=== PATIENT | male | born 1945 | race Caucasian/White ===

== ENCOUNTER 2018-08-19 16:13 | Inpatient (IN) | payer OTHER ==
[~2018-08-19] VITALS: Ht 175.3 cm; Wt 83.6 kg
[~2018-08-19 16:13] MED LIST: AMLODIPINE BESY10 MG PO; CHLORTHALIDONE25 MG PO; LISINOPRIL10 MG PO; NAPROXEN500 MG PO; OMEPRAZOLE20 MG PO; SYNTHROID25 MCG PO
[2018-08-19] MEDS ORDERED: LIPITOR10 MG PO (17:58)
[2018-08-19] MEDS ORDERED: FLOMAX0.4 MG PO (17:58)
[2018-08-19] MEDS ORDERED: FERROUS SULFAT324 MG PO (17:59)
[2018-08-19] MEDS ORDERED: ZYRTEC10 M3 PO (17:59)
--- NOTE | 2018-08-19 19:06 | NUR ---
pt ARRIVED TO FLOOR. ALERT AND ORIENTED, ABLE TO ANSWER ALL QUESTIONS. DENIES PAIN AT THIS TIME. DENIES NAUSEA. SOB IN THE LAST 3 DAYS. HAS HAD NECK PAIN THAT IS POSITIONAL OVER THE LAST WEEK. pt UPDATED ON PLAN OF CARE. NO QUESTIONS AT THIS TIME. GUARDS AT BEDSIDE.
--- NOTE | 2018-08-19 20:00 | NUR ---
INITIAL PATIENT ASSESSMENT COMPLETE. PATIENT RESTING IN BED. DENIES ANY COMPLAINTS. VS STABLE. LUNGS ARE CLEAR. ABD MODERATELY DISTENDED, PATIENT STATES NORMAL. BOWEL SOUNDS ACTIVE, ABD NONTENDER. CMS INTACT, PEDAL AND RADIAL PULSES STRONG. PATIENT RECEIVING IV FLUIDS PER ORDER. MAG STARTED PER ORDERS. BOWEL PREP STARTED. UPDATED PATIENT ON PLAN OF CARE. PATIENT IN FOUR POINT RESTRAINTS WITH TWO OFFICERS AT BEDSIDE.
--- NOTE | 2018-08-19 20:30 | NUR ---
UNIT 1 OF 3 VERIFIED AT BEDSIDE WITH SECOND RN AND STARTED. DISCUSSED SIGNS OF ADVERSE REACTIONS WITH PATIENT. VS STABLE. PATIENT REQUEST TO GET UP TO BEDSIDE. PATIENT HAD VERY SMALL LOOSE BLACK/RED STOOL. ASSISTED PATIENT BACK TO BED. NO SIGNS OF REACTION AFTER 15MINS.
--- NOTE | 2018-08-19 21:37 | NUR ---
PATIENT FINISHED 1 OF 2 BOTTLES OF BOWEL PREP AND BECAME NAUSEOUS. COFFEE GROUND EMESIS NOTED. PRN ZOFRAN PROVIDED. PATIENT REQUIRES ADDITIONAL IV SITE, WHICH WAS STARTED BY ANTHROPOLOGY PROFESSOR.
--- NOTE | 2018-08-19 21:45 | NUR ---
PLATELETS VERIFIED WITH SECOND RN AT BEDSIDE. VS STABLE. PLATELETS PROVIDED ON STRAIGHT TUBING. PATIENT CONTINUES TO DRINK BOWEL PREP. DENIES NAUSEA AT THIS TIME.
--- NOTE | 2018-08-19 22:39 | NUR ---
SECOND UNIT OF PRBC STARTED, 15MIN ASSESSMENT SHOWS NO SIGN OF REACTION. VS STABLE. PATIENT DENIES NEEDS. APPEARS TO BE RESTING COMFORTABLY IN BED.
--- NOTE | 2018-08-19 23:45 | NUR ---
UNIT 3 OF 3 PRBC INFUSING. VERIFIED WITH SECOND RN AT BEDSIDE. AFTER 15 MIN NO SIGNS OF REACTION. VS STABLE. PATIENT UP TO THE BSC. VERY SMALL SEMI FORMED DARK STOOL NOTED. NO URINE OUTPUT AT THIS TIME. PATIENT DENIES FEELING DIZZY OR SOB WITH THIS ACTIVITY.
--- NOTE | 2018-08-20 00:15 | NUR ---
3 OF 3 UNITS OF PRBC FINISHED. VS STABLE. NO SIGN OF REACTION. PATIENT UP TO BSC AND HAD A LARGE LIQUID BLACK STOOL WITH URINE MIXED IN. PATIENT BACK TO BED. LAB IN ROOM FOR SCHEDULED LAB DRAW.
--- NOTE | 2018-08-20 02:15 | NUR ---
PATIENT UP TO BSC. LARGE LIQUID BLACK STOOL WITH MIXED URINE NOTED. NO DIZZINESS WITH TRANSFER. VS STABLE. PATINET BACK IN BED RESTING.
--- NOTE | 2018-08-20 02:35 | NUR ---
MD NOTIFIED OF PATIENT LABS. ORDERS RECEIVED FROM RATE CHANGE OF IV FLUIDS AND ORTHOSTATIC VS TO BE DONE IN THE MORNING WHEN PATIENT IS AWAKE. VERIFIED ORDERS VIS REPEAT BACK METHOD.
--- NOTE | 2018-08-20 04:30 | NUR ---
PATIENT APPEARS TO BE SLEEPING SOUNDLY. VS STABLE. LUNGS ARE CLEAR. ABD SOFT. BOWEL SOUNDS ACTIVE. IV SITES WNL X3. IV FLUIDS PER ORDER. ALLOWED PATIENT TO REST.
--- NOTE | 2018-08-20 05:30 | NUR ---
ORTHOSTATIC VS COMPLETE LAYING BP 138/65 HR 76 STANDING 1 MIN BP 147/68 HR 82 STANDING 3 MIN BP 135/71 HR 71 PATIENT DENIES FEELING DIZZY/LIGHTHEADED
--- NOTE | 2018-08-20 06:51 | NUR ---
DR. STILL IN TO SEE PATIENT. CONSENT SIGNED AND IN CHART.
--- NOTE | 2018-08-20 08:04 | NUR ---
REPORT RECEIVED FROM [facility]. pt RESTING IN BED. AWAKE AND ALERT. ASSESSMENT DONE. DENIES PAIN. VERBALIZED UNDERSTANDING OF TODAY'S PLAN OF CARE. NO REQUESTS AT THIS TIME. GUARDS AT BEDSIDE.
--- NOTE | 2018-08-20 08:30 | NUR ---
up to commode WITH ASSIST TO EXPELL 450 ML OF BLACK LIQ STOOL WITH URINE TOTAL VOLUME 450. BACK TO BED W/O INCIDENT. DENIES DIZZINESS. STATES HE FEES BETTER TODAY.
--- NOTE | 2018-08-20 08:47 | NUR ---
MEDICATION GIVEN (SEE MAR). ENEMA GIVEN. pt WILL CALL WHEN READY FOR BSC. GUARDS AT BEDSIDE
--- NOTE | 2018-08-20 09:07 | NUR ---
CALL LIGHT ON. pt OFF COMMODE, BOWEL OUTPUT BLACK AND SEEDY, NO CHANGE FROM PRIOR BM. pt BACK TO BED. GUARDS AT BEDSIDE. CALL LIGHT WITHIN REACH.
--- NOTE | 2018-08-20 10:13 | NUR ---
pt RESTING IN BED. NO REQUESTS AT THIS TIME. GUARDS AT BEDSIDE.
--- NOTE | 2018-08-20 10:33 | NUR ---
TO COMMODE TO EXPELL BLACK LIQ STOOL WITH URINE. TOTAL VOLUME-650 ML. DENEIS PROBLEMS. OFFICERS REMAINS IN ROOM.
--- NOTE | 2018-08-20 11:55 | NUR ---
OR NURSE HERE. AMBULATED TO STRETCHER. TRANFERRED FROM UNIT.
--- NOTE | 2018-08-20 14:57 | NUR ---
08/20/18 1457 Loraine Andre 1434 PT ARRIVED IN PACU REACTIVE TO VERBAL STIMULI WITH [facility] GUARDS X2 AT BEDSIDE. ABD SOFT AND PASSING FLATUS. 1440 REPOSITIONED TO BACK AND BP CUFF ADJUSTED. PT WITH NO C/O'S.
--- NOTE | 2018-08-20 15:20 | NUR ---
pt ARRIVED FROM PACU, REPORT FROM KATHIE MASON. pt ABLE TO MOVE FROM STRETCHER TO BED. pt DENIED PAIN AND NAUSEA AT THIS TIME. UP TO BSC, SBA STABLE ON FEET. ASSESSMENT DONE. CLEAR LIQUIDS PROVIDED. CALL LIGHT WITHIN REACH. NO REQUESTS AT THIS TIME.
--- NOTE | 2018-08-20 16:33 | NUR ---
Medications reconciled with [facility] med list
--- NOTE | 2018-08-20 16:33 | NUR ---
pt UP TO COMMODE AND BACK TO BED. YELLOW URINE. pt REPORTED SOME FROM BOWEL, A FEW SMALL CLOTS. pt REPORTED "I FEEL BETTER", DENIES DIZZINESS AND LIGHTHEADEDNESS, NO NAUSEA. CALL LIGHT WITHIN REACH. NO REQUESTS AT THIS TIME.
--- NOTE | 2018-08-20 17:15 | NUR ---
pt RESTING WITH EYES CLOSED, DINNER TRAY IN ROOM.
--- NOTE | 2018-08-20 18:07 | NUR ---
LAB IN ROOM. pt UP TO BSC. CALL LIGHT WITHIN REACH.
--- NOTE | 2018-08-20 18:29 | NUR ---
CALL LIGHT ON. SCANT AMOUNT OF BRIGHT RED BLOOD NOTED IN BSC. pt DENIED DIZZINESS. AMBULATED BACK TO BED. TRAY CLEARED. NO REQUESTS AT THIS TIME. GUARDS AT BEDSIDE.
--- NOTE | 2018-08-20 19:31 | NUR ---
pt UP TO BSC AND BACK TO BED. LARGE VOID, NO BM. GUARDS AT BEDSIDE. NO REQUESTS AT THIS TIME.
--- NOTE | 2018-08-20 19:50 | NUR ---
REPORT RECEIVED, PT RESTING IN BED, AOX4, APPROPRIATE, EOC[facility] GUARDS AT BEDSIDE, PT DENIES ANY NEEDS AT THIS TIME, LS CLEAR, BT ACTIVE, PT DENIES ANY ABDOMINAL DISCOMFORT, DENIES ANY PAIN. PT ON RA. VSS, CALL LIGHT WITHIN REACH. FALL PRECAUTIONS IN PLACE. [facility] GUARDS REMAIN AT BEDSIDE. HR 60'S, BP @ 20:00: 108/50 (65), RR 16,
--- NOTE | 2018-08-20 21:04 | NUR ---
EVENING MEDS ADMINISTERED, PT AOX4, APPROPRIATE, NO NEEDS AT THIS TIME, VSS, [facility] GUARDS REMAIN AT BEDSIDE. IV'S FLUSHED, SL, FLUSH WELL, CALL LIGHT WITHIN REACH. FALL PRECAUTIONS IN PLACE.
--- NOTE | 2018-08-20 22:14 | NUR ---
PT RESTING IN BED, NO REQUESTS AT THIS TIME, CALL LIGHT WITHIN REACH. EOCI GUARDS X2 AT BEDSIDE, FALL PRECAUTIONS IN PLACE. VSS.
--- NOTE | 2018-08-20 22:41 | EKG ---
[facility] [address] [facility] [place] [address] Signed Sinus rhythm with 1st degree AV block Septal infarct , age undetermined Abnormal ECG No previous ECGs available Confirmed by GREG SAMPSON MD ([id number]) on 08/20/2018 10:41:43 PM Electronically Signed By: GREG SAMPSON MD 08/20/18 2241 PATIENT NAME: BALJINDER ASKEW Electrocardiogram DATE OF : 49 PHYSICIAN: GREG SAMPSON MD REPORT #: [id number] REPORT IS CONFIDENTIAL AND NOT TO BE RELEASED WITHOUT AUTHORIZATION
--- NOTE | 2018-08-20 23:43 | NUR ---
PT RESTING IN BED, EYES CLOSED, BREATHS EVEN, UNLABORED, NO REQUESTS AT THIS TIME, CALL LIGHT WITHIN REACH, FALL PRECAUTIONS IN PLACE. [facility]OCI GUARDS AT BEDSIDE.
--- NOTE | 2018-08-21 | NUR ---
PT UP TO BSC, PT VOIDED 550 MLS OF URINE, PT DID NOT HAVE A BM ALTHOUGH STATED THAT THERE WAS SOME RED BLOOD NOTED WHEN HE WIPED HIS BOTTOM. PT'S VSS, BP 116/58, HR 68, ON RA, O2 SAT 93%, NO REQUESTS AT THIS TIME, CALL LIGHT WITHIN REACH. FALL PRECAUTIONS IN PLACE. EOCI GUARDS AT BEDSIDE.
--- NOTE | 2018-08-21 03:32 | NUR ---
PT'S OXYGEN NOTED TO DESATURATE WHILE PATIENT WAS SLEEPING TO 86%, PT PLACED ON 1LNC, PT DENIES SOB/CP, HR 67, RR 17, O2 SAT NOW 96%, CALL LIGHT WITHIN REACH. FALL PRECAUTIONS IN PLACE. EOCI GUARDS AT BEDSIDE.
--- NOTE | 2018-08-21 05:09 | NUR ---
PT UP TO VOID IN URINAL, PT VOIDED 450 MLS OF CLEAR YELLOW URINE, NO FURTHER NEEDS AT THIS TIME, CALL LIGHT WITHIN REACH. VSS, FALL PECAUTIONS IN PLACE. EOCI GUARDS AT BEDSIDE.
--- NOTE | 2018-08-21 06:35 | CONS ---
[facility] [address] [place], [place] [address] Signed DATE OF CONSULTATION: 08/19/2018 CHIEF COMPLAINT: Anemia. HISTORY OF PRESENT ILLNESS: Baljinder is a 73-year-old gentleman, who had been in the hospital in 2015 for an episode of anemia. He underwent upper and lower endoscopy with Dr. Sousa. He is known to have fairly sizable hiatal hernia as well as fairly significant diverticulosis and maybe some small AV malformations in the rectum. In the meantime, he has been maintained on oral iron therapy. He cannot recall ever seeing a humidifier operator. He said he has had some bright red rectal bleeding in the last 3 days and was feeling dizzy. Of course, when they checked his blood count, it was low at 5.9. He is therefore brought over to the emergency room for admission. He has received 3 units of packed red blood cells overnight and his hemoglobin is up to 9.3. He was given IV fluids and his sodium is up from 122 to 125. His BUN was only slightly up at 25. At one point, he did vomit some of the prep and it looks like there was some coffee-grounds emesis present. We know he has been on chronic Naprosyn because of his arthritis in his lumbar area and his joints. However, he does take omeprazole. I have been asked to see him as the general surgeon on-call. Overall, he has done well. 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 PAST SURGICAL HISTORY: Left knee arthroscopy and upper and lower endoscopy [place] [address] Sousa. SOCIAL HISTORY: He has not smoked since being in [place]. He does not drink. He is at the [facility]. Dr. Linus Yo is his primary care provider. He was then [employer] out of [place], [place]. He is and has two daughters. FAMILY HISTORY: He is adopted and has no knowledge of his biologic family. REVIEW OF SYSTEMS: He had ten systems reviewed. He said there is no metal in his body. ALLERGIES: None. Electronically Signed By: DONALD STILL MD 08/21/18 0635 PATIENT NAME: BALJINDER ASKEW CONSULTATION DATE OF : 49 REPORT #: [id number] PHYSICIAN: DONALD STILL MD PCP: LINUS YO MD REPORT IS CONFIDENTIAL AND NOT TO BE RELEASED WITHOUT AUTHORIZATION [facility] [address] [place] [id number] Signed MEDICATIONS: Amlodipine, levothyroxine, lisinopril, atorvastatin, chlorthalidone, tamsulosin, naproxen, omeprazole, sertraline, and iron sulfate. PHYSICAL EXAMINATION: VITAL SIGNS: Blood pressure is 132/52, heart rate 76, respiratory rate 14, temperature 97.6. He is 95% on room air. He is 5 feet and 9 inches, 81 kg. GENERAL: Baljinder is a 73-year-old gentleman, lying supine in his hospital bed. He does not appear systemically ill or toxic. He does not appear pale. Two of the officers are with him along with our nurse. LUNGS: Clear to auscultation bilaterally. HEART: Regular rate and rhythm. ABDOMEN: Soft and nontender. RECTAL: Not repeated currently. LABORATORY DATA: His initial white blood cell count was around 8.8, it is up to about 12.9. His hemoglobin was 5.9. He received three units of packed red blood cells and it is up to 9.3. His platelet count is low at 80,000. His sodium was low at 122, now it is up to 125 after some saline. His BUN was 25, but the creatinine was normal at 0.88, glucose 118, his alkaline phosphatase slightly up at 163, possibly from his ankylosing spondylitis. His INR is 1.4. His PTT was 36. His albumin is 4. RADIOGRAPHIC STUDIES: None. ASSESSMENT AND PLAN: Baljinder is a 73-year-old gentleman, who presents certainly with anemia and some rectal bleeding. He sounds like he may have had a little coffee ground emesis yesterday with the bowel prep. At this point, he certainly has reasons to have both upper and lower GI bleeds. He is certainly better after 3 units of packed red blood cells and his sodium has certainly improved at this point. We are going to need to check with our anesthesia providers about the sodium if we can sedate him today or maybe tomorrow or the next day. I did review with him upper and lower endoscopy. He remembers that quite well. He understands there is risk including, but not limited to gas bloating, crampy abdominal pain, bleeding, perforation, requiring surgery, and missed diagnosis. He has expressed understanding and would like to proceed. Donald Still MD Electronically Signed By: DONALD STILL MD 08/21/18 0635 PATIENT NAME: BALJINDER ASKEW CONSULTATION DATE OF : 49 REPORT #: [id number] PHYSICIAN: DONALD STILL MD PCP: LINUS YO MD REPORT IS CONFIDENTIAL AND NOT TO BE RELEASED WITHOUT AUTHORIZATION [facility] [address] [place] [address] Signed ALB/MODL /[id number] cc: MD Donald Wu MD Copies: LINUS YO MD, ANDREW L MD ~ Electronically Signed By: DONALD STILL MD 08/21/18 0635 PATIENT NAME: BALJINDER ASKEW CONSULTATION DATE OF : 49 REPORT #: [id number] PHYSICIAN: DONALD STILL MD PCP: LINUS YO MD REPORT IS CONFIDENTIAL AND NOT TO BE RELEASED WITHOUT AUTHORIZATION
--- NOTE | 2018-08-21 06:35 | OR ---
[facility] [address] [place], [place] [address] Signed DATE OF OPERATION: 08/20/2018 SURGEON: Donald Still MD PREOPERATIVE DIAGNOSES: 1. Coffee-ground emesis with bowel prep. 2. Melena, on oral iron therapy. 3. Mild bright red rectal bleeding. 4. Severe acute on chronic anemia. 5. Naprosyn p.r.n. for arthritic pain. 6. History of moderate-sized hiatal hernia. 7. History of moderate sigmoid diverticulosis. POSTOPERATIVE DIAGNOSES: 1. Moderate Melvi-Venegas tear with blood clot. 2. Moderate-sized hiatal hernia. 3. Moderate sigmoid diverticulosis. 4. Mild bright red blood per anal canal/anal fissure. PROCEDURES PERFORMED: 1. Esophagogastroduodenoscopy with CLOtest and biopsies of the antrum. 2. Colonoscopy without biopsy. ESTIMATED BLOOD LOSS: None. INDICATIONS: Baljinder is a 73-year-old gentleman [facility]. He said he has had some bright red blood per rectum in the last 3 days. He was feeling dizzy and he was found to have some hypotension and acute on chronic anemia. This is despite his routine oral iron therapy. He is also known to have a moderate-sized hiatal hernia associated with acid reflux. He had this evaluated back in 2015 here in the hospital. He had upper and lower endoscopy at that time. He also has moderate sigmoid diverticulosis. He had been sent to emergency room with the above findings. His hemoglobin was 5.9. He got 3 units of packed red blood cells and now his hemoglobin is up to 9.3. His BUN is slightly elevated at 25. Albumin was good at 4 and his INR was 1.4 with a PTT of 36. He has been on omeprazole as well. He gives no specific history of vomiting while at [facility]. He was admitted to our Internal Medicine Service. I have been asked to see him as a general surgeon on-call. I reviewed all these findings with Baljinder in detail. I explained it would be best if he Electronically Signed By: DONALD STILL MD 08/21/18 0635 PATIENT NAME: BALJINDER ASKEW OPERATIVE REPORT DATE OF : 49 REPORT #: [id number] PHYSICIAN: DONALD STILL MD PCP: LINUS YO MD REPORT IS CONFIDENTIAL AND NOT TO BE RELEASED WITHOUT AUTHORIZATION [place] [facility] [address] [place], [place] [address] Signed have upper and lower endoscopy. He had been through his bowel prep yesterday and overall did well with that except he did vomit once and he did have some coffee-ground emesis associated with that. He understands upper endoscopy quite well. There is risk including, but not limited to gas bloating, crampy abdominal pain, bleeding, perforation requiring surgery, and missed diagnosis. He also understands the need for IV conscious sedation. Given his acute situation and his vomiting of coffee-ground emesis, we asked that an anesthesia provider help us with increased monitoring of the airway and sedation with propofol. He had expressed understanding and wished to proceed. DESCRIPTION OF PROCEDURE: Baljinder was taken into endoscopy suite and placed in the supine semi-recumbent position. A bite block was utilized for the case. We did not apply Hurricaine spray or lidocaine spray to his posterior oropharynx. He was sedated with propofol per our nurse cream tester. The adult gastroscope was introduced and advanced all the way out into the third portion of the duodenum under direct visualization of camera. He had some bilious fluid in the duodenum. The pyloric channel was unremarkable. The distal half of the stomach was unremarkable other than some dark liquid blood spread around the stomach. We went and took a biopsy of the antrum for CLOtest as well as pathologic review. No ulcerations in the stomach. Upon retroflexion of scope, we could easily see his moderate-sized hiatal hernia. He had a moderate-sized blood clot on the edge of the hiatal hernia consistent with his Melvi-Venegas tear. No active bleeding from underneath the clot. The clot was irrigated and adherent to the area. Consequently, we left that alone. We did not inject any epinephrine nor did we apply any clips. The scope was withdrawn up through the area of GE junction, which was compliant without stricture. We did not specifically assess the Z-line. His middle and upper esophagus were unremarkable. After this, the gas was suctioned out, the gastroscope removed. Baljinder tolerated his upper endoscopy quite well. Baljinder was then rotated into the left lateral decubitus position. He was maintained on IV sedation with his propofol. A digital rectal exam was performed, this was unremarkable other than some black liquid blood on the index finger. I then specifically evaluated his prostate gland. The adult colonoscope was then introduced and advanced all around up into the mid right colon under direct visualization of camera without difficulty. The proximal half of his colon was black, tarry liquid stool, so we did not advance the scope any further. The scope was then slowly withdrawn. He had black, tarry liquid stool throughout the entire colon. There was no bright red blood in the colon. We did see moderate diverticulosis in the sigmoid colon. The rectum was unremarkable. Upon retroflexion of the scope, he has some small internal hemorrhoid columns. We then slowly withdrawn the scope down to the anal canal and he had just one radial area, where there was some bright red blood and it looks like he might have an acute fissure that has bled. Certainly nothing copious. After this, the gas was suctioned out and the colonoscope removed. Baljinder tolerated the lower endoscopy quite Electronically Signed By: DONALD STILL MD 08/21/18 0635 PATIENT NAME: BALJINDER ASKEW OPERATIVE REPORT DATE OF : 49 REPORT #: [id number] PHYSICIAN: DONALD STILL MD PCP: LINUS YO MD REPORT IS CONFIDENTIAL AND NOT TO BE RELEASED WITHOUT AUTHORIZATION [place] [facility] [address] [place] [id number] Signed well. RECOMMENDATIONS: Baljinder is going to be returned to his ICU bed under the Internal Medicine Service. He will obviously need to stay on his proton pump inhibitor along with a liquid diet. We will continue to monitor serial exams and serial hemoglobin levels. 85% of all Melvi- Venegas tears will heal without intervention. In addition, the acute anal fissure should heal as well. Donald Still MD ALB/MODL /[id number] cc: MD Linus Cazares MD [facility] Copies: DONALD STILL MD, LELAND MD ~ Electronically Signed By: DONALD STILL MD 08/21/18 0635 PATIENT NAME: BALJINDER ASKEW OPERATIVE REPORT DATE OF : 49 REPORT #: [id number] PHYSICIAN: DONALD STILL MD PCP: LINUS YO MD REPORT IS CONFIDENTIAL AND NOT TO BE RELEASED WITHOUT AUTHORIZATION
--- NOTE | 2018-08-21 08:43 | NUR ---
PT RESTING IN BED, DENIES PAIN, NAUSEA, AND SOB. PT ALERT AND ORIENTED X4, COOPERATIVE. PT IN 4 POINT RESTRAINTS, SKIN INTACT. TWO GAURDS AT THE BEDSIDE. ALL IV SITES INTACT, FLUSH EASILY.
--- NOTE | 2018-08-21 12:40 | NUR ---
full report given to Rebecca VÁZQUEZ. all questions answered.
--- NOTE | 2018-08-21 12:55 | NUR ---
pt transfered to room 123, all pt belongings went with pt. [facility] went with pt.
--- NOTE | 2018-08-21 13:00 | NUR ---
73YR OLD MAN ADMITTED FROM CCU TO ROOM 123. TRANSFERRED IN RECLINER BY NURSE AND ACCOMPANIED BY 2 GUARDS. PT IS ALERT, ORIENTED. WANTS TO REMAIN SITTING UP IN RECLINER. BLOOD DRAWN FOLLOWING PLATELETS GIVEN IN CCU. ORIENTED TO ROOM, DENIES ANY NEEDS. LUNCH ORDERED.
--- NOTE | 2018-08-21 13:29 | NUR ---
PLATELETS NOW 86 FROM 61 THIS AM. PT WATCHING TV IN RECLINER, EATING LUNCH.
--- NOTE | 2018-08-21 13:57 | NUR ---
ATE 100% OF FULL LIQUID LUNCH TRAY. RESTING NOW ON BED.DENIES FURTHER NEEDS.
--- NOTE | 2018-08-21 15:10 | NUR ---
DENIES ANY NAUSEA OR PAIN. WATCHING TV. GUARDS IN ROOM.
--- NOTE | 2018-08-21 17:22 | NUR ---
PT TRANSFERRED FROM CCU TODAY FOLLOWING PLATELET INFUSION, LABS IMPROVED AND WILL BE REPEATED IN AM, DR STILL CALLED FOR UPDATE AT THIS TIME, WILL CONT. ON CL LIQUID DIET FOR TONIGHT. NO C/O NAUSEA, PAIN AND NO BLEEDING. 2 GUARDS IN ROOM.
--- NOTE | 2018-08-21 18:55 | NUR ---
SHIFT REPORT RECEIVED FROM DAYSMIJAYLEN DAVIS AT BEDSIDE. PT IN BATHROOM TAKING SHOWER. GUARDS IN ROOM. NO NEEDS AT THIS TIME.
--- NOTE | 2018-08-21 19:45 | NUR ---
CHARGE NURSE ROUNDING NOTE:, IN BED, WEARING 4 POINT SHACKLES, 2 [facility] GUARDS IN ROOM. PT DENIES C/O PAIN. WATCHING TV. CALL LIGHT AT BEDSIDE. PT ON CLEAR LIQUIDS, WOULD LIKE TO HAVE DIET UPDATED TO REGULAR, EXPLAINED TO HIM ABOUT HIS DX, PRECAUTION. STATED "I AM JUST HUNGRY".
--- NOTE | 2018-08-21 21:15 | NUR ---
ASSESSMENT COMPELTE, SCHEDULED MEDICATIONS GIVEN (SEE EMAR). PT A/OX4, DENIES PAIN. VSS AND RECORDED. PT EOCI, GUARDS X2 IN ROOM. RESTRAINTS IN PLACE. PT RECENTLY COMPLETED SHOWER, NOW RESTING IN BED. NO DISTRESS NOTED. PT DENIES NAUSEA, BOWEL TONES ACTIVE. PT SALINE LOCKED, IV SITE X3 WNL. FRESH WATER AT BEDSIDE, NO FURTHER NEEDS. CALL LIGHT IN REACH.
--- NOTE | 2018-08-21 21:37 | NUR ---
VITALS AND I&OS DONE AND CHARTED. FRESH ICE WATER GIVEN. BEDSIDE TABLE AND CALL LIGHT IN REACH. PT NEEDS NOTHING MORE AT THIS TIME.
--- NOTE | 2018-08-21 23:00 | NUR ---
PT RESTING IN BED, EYES CLOSED, RR WNL. PT DENIES NEEDS, NO DISTRESS NOTED. CALL LIGHT IN REACH, RESTRAINTS IN PLACE. GUARDS X2 IN ROOM.
--- NOTE | 2018-08-22 01:50 | NUR ---
PT AWAKE AND IS RESTING IN BED. EYES OPEN, RR WNL. PT STATES, "I'M HAVING A HARD TIME GETTING TO SLEEP. I CAN'T GET COMFORTABLE". PT OFFERED WARM BLANKET, ICE PACK, BOTH OF WHICH PT KINDLY DECLINED. EOCI GUARDS IN ROOM, RESTRAINTS IN PLACE. CALL LIGHT IN REACH. NO FURTHER NEEDS.
--- NOTE | 2018-08-22 04:05 | NUR ---
PT RESTING IN BED, EYES CLOSED, RR WNL. PT APPEARS COMFORTABLE. CALL LIGHT IN REACH. EOCI GUARDS X2 IN ROOM. RESTRAINTS IN PLACE.
--- NOTE | 2018-08-22 04:42 | NUR ---
PT'S SCHEDULED LEVOTHROID RETIMED FOR 0700 DAILY. 0900 DISCONTINUED AND RETIMED FOR 0700 BY TELEPHARMACY.
--- NOTE | 2018-08-22 05:02 | NUR ---
PT HAD UNEVENTFUL NIGHT, DID HAVE DIFFICULTY INITIALLY FALLING TO SLEEP. PT SHOWERED, SBA. EOCI GUARDS IN ROOM, RESTRAINTS IN PLACE. PT A/OX4, VERBALIZED DISCOMFORT AT ONE POINT WITH POSITIONING IN BED. VSS, PT ON RA. CLEAR LIQUID DIET, TOLERATING WELL. NO NAUSEA THIS SHIFT.
--- NOTE | 2018-08-22 05:54 | NUR ---
VSS AND RECORDED. I&O'S ALSO RECORDED. ASSESSMENT COMPLETE, NO NEW CONCERNS. PT A/OX4, DENIES PAIN. PT RESTING IN BED, EYES OPEN, RR WNL. PT APPEARS COMFORTABLE AND INTERACTING WITH NURSING STAFF AND EOCI GUARDS. RESTRAINTS IN PLACE, NO FURTHER NEEDS. FRESH WATER AT BEDSIDE.
--- NOTE | 2018-08-22 07:32 | NUR ---
REPORT RECIEVED FROM MANAGER COMMUNITY RN. PT IN BED 2 GAURDS AT BEDSIDE. DENIES DNEEDS. CALL LIGHT IN REACH.
--- NOTE | 2018-08-22 08:15 | NUR ---
PATIENT SITTING UP IN BED WATCHING TV. TWO GUARDS IN ROOM. CALL LIGHT WITHIN REACH. NO OTHER NEEDS AT THIS TIME
--- NOTE | 2018-08-22 09:58 | NUR ---
PATIENT RESTING IN BED. TWO GUARDS IN ROOM. VITAL SIGNS AND I&O DONE. PATIEBNT DID NOT VOID DURING THIS PERIOD. RN NOTIFIED. CALL LIGHT WITHIN REACH. NO OTHER NEEDS AT THIS TIME
--- NOTE | 2018-08-22 10:20 | NUR ---
BLOOD DOUBLE CHECKED WITH RYAN VÁZQUEZ. BLOOD STARTED.
--- NOTE | 2018-08-22 12:14 | NUR ---
PT OUT AMBULATING [facility] JENNIFER AT SIDE. TOLERATING WELL,.
--- NOTE | 2018-08-22 13:39 | NUR ---
PATIENT SITTING UP IN BED WATCHING TV. TWO GUARDS IN ROOM. VITAL SIGNS AND I&O DONE. CALL LIGHT WITHIN REACH. NO OTHER NEEDS AT THIS TIME
--- NOTE | 2018-08-22 15:00 | NUR ---
PT OUT WITH GAURDS TO AMBULATE IN HALLS. TOLERATING WELL. DID MULTIPLE LAPS.
--- NOTE | 2018-08-22 19:15 | NUR ---
BEDSIDE REPORT RECEIVED FROM OFFGOING RN. PT RESTING IN BED WITH SHACKLES PRESENT X4. CORRECTIONAL OFFICERS AT BEDSIDE X 2. PT DENIES NEEDS AT THIS TIME. CALL LIGHT IN REACH.
--- NOTE | 2018-08-22 21:02 | NUR ---
PT ASSESSMENT COMPLETE. PT DENIES PAIN, NAUSEA, OR SOB. STATES THAT HE HAS CHRONIC MUSCLE PAIN, RATES 3/10, STATES THIS IS TOLERABLE. . BT'S ACTIVE. DENIES TENDERNESS TO PALPATION. IV SITES FLUSHED, WNL. SCATTERED BRUISING PRESENT. SKIN INTACT BENEATH CORRECTIONAL SHACKLES. CMS INTACT, PT DENIES NUMBNESS OR TINGLING TO EXTREMITIES. CORRECTIONAL OFFICERS AT BEDSIDE X2. ICE WATER REFILLED FOR PT. DENIES FURTHER NEEDS. STATES HE WILL "TRY TO SLEEP". CALL LIGHT WITHIN REACH.
--- NOTE | 2018-08-22 23:10 | NUR ---
PT RESTING IN BED AWAKE. PT REQUESTS MORE ICE WATER, PROVIDED. DENIES FURTHER NEEDS AT THIS TIME. CORRECTIONAL OFFICERS REMAIN AT BEDSIDE. CALL LIGHT WITHIN REACH.
--- NOTE | 2018-08-23 02:00 | NUR ---
GIVEN PATIENT REPORT BY RENATO JOHN RN. PATIENT RESTING QUIETLY ON HIS LEFT SIDE, EYES CLOSED, RESPIRATIONS EVEN AND REGULAR AT 16. TWO [employer] OFFICERS AT BEDSIDE. BELLY CHAIN WITH CUFFS AND SHACKLES IN PLACE.
--- NOTE | 2018-08-23 05:05 | NUR ---
TOOK REPORT ON PATIENT AT 0200. PATIENT HAS SLEPT UNTIL NOW, JUST GOT UP AND TRIED TO POOP, BUT NO RESULT. VS STABLE. PATIENT BACK TO BED IN SHACKLES WITH BELLY CHAIN AND CUFFS. 2 [employer] OFFICERS PRESENT. PATIENT DENIED HAVING ANY PAIN AND WAS GIVEN NEW ICE WATER. MAY GO BACK TO [facility] TODAY DEPENDING ON LABS.
--- NOTE | 2018-08-23 07:00 | NUR ---
BEDSIDE HANDOFF REPORT RECEIVED FROM MAGNET PLACER RN. PT INDEPENDENT IN ROOM. VOIDED IN URINAL. [employer] CORRECTIONS OFFICERS AT BEDSIDE. PT DENIES OTHER NEEDS AT THIS TIME.
--- NOTE | 2018-08-23 09:15 | NUR ---
PT RESTING IN BED, EATING BREAKFAST. PT ON ROOM AIR, LUNG SOUNDS CLEAR, DENIES SOB. PT DENIES NAUSEA, TOLERATING FULL LIQUID DIET. IV SLAINE LOCKED, FLUSHED. CMS INTACT, WITHOUT EDEMA. PT INDEPENDENT IN ROOM, [employer] OFFICERS AT BEDSIDE. MD TO BEDSIDE, PLAN FOR SCOPE TOMORROW. PT DENIES OTHER NEEDS AT THIS TIME. DISCUSSED PLAN OF CARE.
--- NOTE | 2018-08-23 10:15 | NUR ---
CALCIUM GLUCONATE IV INFUSING PER ORDER. PT REQUESTING COUGH SYRUP, ROBITUSSIN GIVEN PER ORDER. PT DENIES OTHER NEEDS AT THIS TIME.
--- NOTE | 2018-08-23 14:11 | NUR ---
PLATELET TRANSFUSION 1 OF 1 STARTED. 2 RN VERIFICATION WITH KATHIE DAVIS. RN REMAINED WITH PT FOR 15 MINUTES, NO S/S OF TRANSFUSION REACTION. VSS. PT EDUCATED ON S/S OF TRANSFUSION REACTION AND TO NOTIFY RN IMMEDIATELY IF S/S OCCURE. PT DENIES OTHER NEEDS AT THIS TIME.
--- NOTE | 2018-08-23 15:40 | NUR ---
PLATELET TRANSFUSION COMPLETED. NO S/S OF REACTION. IV SALINE LCOKED. PT DENIES OTHER NEEDS AT THIS TIME.
--- NOTE | 2018-08-23 18:08 | NUR ---
PT ON ROOM AIR, LUNG SOUNDS CLEAR. PT TOLERATING FULL LIQUID DIET, WILL BE NPO AT MIDNIGHT FOR EGD TOMORROW. PT RECEIVED 1 UNIT PLATELETS TODAY. PT INDEPENDENT IN ROOM. PT DENIES PAIN. VOIDING QS, HAD 1 SMALL BLACK STOOL TODAY.
--- NOTE | 2018-08-23 19:32 | NUR ---
GOT REPORT FROM DAYSHIFT RN. PATIENT CURRENTLY RESTING WITH EYES CLOSED, RESPIRATIONS 16, LAYING SUPINE IN NO DISTRESS. BELLY CHAIN WITH CUFFS AND SHACKLES ARE IN PLACE. TWO [employer] OFFICERS AT BED SIDE.
--- NOTE | 2018-08-23 21:29 | NUR ---
ASSESSMENT COMPLETE, EVENING MEDS GIVEN, PATIENT IN BED WATCHING TV. VS STABLE. TO [employer] CORRECTIONS OFFICERS AT BEDSIDE.
--- NOTE | 2018-08-23 23:32 | NUR ---
PATIENT RESTING SUPINE, RESPIRATIONS 16, EYES CLOSED, 2 [employer] OFFICERS AT BEDSIDE.
--- NOTE | 2018-08-24 01:30 | NUR ---
PATIENT AWKE WATCING TV IN BED WITH [employer] OFFICERS.
--- NOTE | 2018-08-24 03:52 | NUR ---
PATIENT JUST CALLED TO LET ME KNOW HE WAS UP TO THE BATHROOM.
--- NOTE | 2018-08-24 05:38 | NUR ---
PATIENT WAS JUST UP AND HAD 1 BLACK TARRY STOOL. STILL HAVING NO PAIN. NPO SINCE MID-NIGHT. IV RUNNING AT 100MLS/HR. PATIENT HAS CAT NAPPED THROUGH THE NIGHT UP TO URINATE MULTIPLE TIMES. IN NO DISTRESS. OTHERWISE WATCHING TV WITH [employer] OFFICERS. REMAINS IN BELLY CHAIN WITH CUFFS AND SHACKLES.
--- NOTE | 2018-08-24 07:51 | NUR ---
0710: Report recieved from Kelvin VÁZQUEZ.
--- NOTE | 2018-08-24 08:22 | NUR ---
PT RESTING IN BED AND STATES HIS CHRONIC BACK PAIN IS A 5-6/10 WHICH IS ACCEPTABLE AT THIS TIME. HE HAS BEEN NPO SINCE BEFORE MN IN PREP FOR HIS EGD THIS AM. HE HAS NOT OTHER COMPLAINTS AT THIS TIME. THE GUARDS REMAIN IN THE ROOM AND THE CALL JACKSON IS WITHIN REACH.
--- NOTE | 2018-08-24 09:47 | NUR ---
08/24/18 0947 Stacie Perez 0934 PATIENT ARRIVES TO PACU UNRESPONSIVE TO PAIN. NC AT 10 LITERS. OXYGEN SATS IN HIGH 80S, REQUIRES JAW THRUST, CONTINUES TO HAVE SATS IN 80S. PATIENT PLACED ON SIMPLE MASK AT 10 LITERS WITH CONTINUED JAW THRUST, SATS START TO IMPROVE. [employer] OFFICER X1 AT BEDSIDE. 0935 PATIENT HAS DIFFUSE COURSE LUNG SOUNDS. PATIENT UNABLE TO FOLLOW COMMANDS TO COUGH. LARRY PATIENT SVCS MGR AT BEDSIDE. ORDERS FOR DUONEB. 0940 PATIENT OPENS EYES WITH VERBAL COMMAND, BUT DOES NOT FOLLOW COMMANDS TO DEEP BREATHE AND COUGH. SIMPLE MASK OFF, DUONEB WITH MASK STARTED AT 5 LITERS. 0945 PATIENT AWAKE OFF/ON, BUT DROWSY. ABLE TO DEEP BREATH AND COUGH. RESP EVEN AND UNLABORED, DUONEB CONTINUES AT 5 LITERS VIA MASK. PATIENT DENIES PAIN OR NAUSEA.
--- NOTE | 2018-08-24 10:31 | NUR ---
0850: PT LEFT THE FLOOR TO GO TO HIS EGD. 1015: PT ARRIVED BACK TO HIS ROOM AND REPORT WAS RECIEVED FROM ERIN VÁZQUEZ. PT IN HIS BED AND WAS INCONT OF BLACK TARRY STOOL. PT ALERT AND ORIENTED AND HELPED TO THE BR. PT GIVEN SUPPLIES TO CLEAN UP AND REMIANS IN THE BR AT THIS TIME. THE BED WAS CLEANED AND NEW BEDDING APPLIED. AWAITING THE PT TO RETURN TO HIS BED FOR VITAL SIGNS.
--- NOTE | 2018-08-24 10:51 | NUR ---
PT CLEANED UP AND HELPED BACK TO BED AT THIS TIME. VSS. HE DENIES ANY PAIN OR PROBLEMS AT THIS TIME.
--- NOTE | 2018-08-24 10:54 | NUR ---
D5LR IV RESTARTED AT THE NEW RATE OF 75 ORDERED.
--- NOTE | 2018-08-24 11:00 | NUR ---
PATIENT USING BATHROOM. TWO GUARDS AND RN IN ROOM. PATIENT CLEAN UP. PATIENT USING A CLEAN GOWN AND DEPENDS. TWO PERSON ASSISTING. PATIENT BACKS TO BED. CALL LIGHT WITHIN REACH. NO OTHER NEEDS AT THIS TIME
--- NOTE | 2018-08-24 12:33 | NUR ---
1230: A UNIT OF PACKED CELLS INFUSION STATRTED ORDERED WITH IT BEING DOUBLE CHECKED WITH ERIN VÁZQUEZ. PT INSTRUCTED IN THE S/S OF A TRANSFUSION REACTION AND INSTRUCTED TO NOTIFY ME IF ANY ARE NOTED. THIS RN REMAINS AT THE BEDSIDE.
--- NOTE | 2018-08-24 12:51 | NUR ---
PT TOLERATING THE BLOOD TRANSFUSION WITH OUT ANY SIGNS OF A REACTION, RATE INCREASED TO 150 AT THIS TIME.
--- NOTE | 2018-08-24 14:08 | NUR ---
PATIENT RESTING IN BED. TWO GUARDS AND RN IN ROOM. VITAL SIGNS DONE BY RN. I&O DONE. CALL LIGHT WITHIN REACH. NO OTHER NEEDS AT THIS TIME
--- NOTE | 2018-08-24 15:27 | NUR ---
1319: FIRST UNIT OF BLOOD COMPLETE, 2ND UNIT STARTED. NO SIGNS OF REACTION NOTED.
--- NOTE | 2018-08-24 15:36 | NUR ---
PT'S 15 MIN POST START OF BLOOD INFUSION VITALS DONE WITH NO SIGNS OF REACTION. PT DENIES ANY PROBLEMS AT THIS TIME.
--- NOTE | 2018-08-24 16:31 | NUR ---
SECOND UNIT OF BLOOD CONTINUES INFUSIONING WITH ANY PROBLEMS. PT RESTING IN BED WITH NO COMPLAINTS.
--- NOTE | 2018-08-24 17:56 | NUR ---
1748: Blood transfusion completed.
--- NOTE | 2018-08-24 17:59 | NUR ---
PATIENT RESTING IN BED. ONE GUARD AND RN IN ROOM. VITAL SIGNS AND I&O DONE. CALL LIGHT WITHIN REACH. NO OTHER NEEDS AT THIS TIME
--- NOTE | 2018-08-24 18:27 | NUR ---
CALL LIGHT ANSWERED. PATIENT IN BED. TWO GUARDS IN ROOM. PATIENT GOES TO USE BATHROOM. ONE PERSON ASSISTING. PATIENT'S BM IS DARK. RN NOTIFIED. ATTEND CHANGED. PATIENT BACKS TO BED. CALL LIGHT WITHIN REACH. NO OTHER NEEDS AT THIS TIME
--- NOTE | 2018-08-24 19:25 | NUR ---
REPORT RECEIVED FROM OFFGOING RN.
--- NOTE | 2018-08-24 21:13 | NUR ---
PT ASSESSMENT COMPLETE. PT REPORTS PAIN 6/10 "MUSCLES", ALL OVER BODY. PT STATES IT IS TOLERABLE, SOMETIMES HARD TO FIND A COMFORTABLE POSITION. PT DENIES SOB OR NAUSEA. LUNG SOUNDS DIMINISHED IN BILATERAL LOWER LOBES. SCATTERED BRUISING TO BILATERAL ARMS AND HANDS. SKIN INTACT BELOW SHACKLES X4, CMS ALSO INTACT. ICE WATER PROVIDED REQUESTED. PT DENIES FURTHER NEEDS AT THIS TIME. CALL LIGHT IN REACH. CORRECTIONAL OFFICERS AT BEDSIDE.
--- NOTE | 2018-08-24 23:13 | NUR ---
V/SAND I&O TAKEN AND RECORDED.
--- NOTE | 2018-08-24 23:45 | NUR ---
PT RESTING IN BED AWAKE. OFFICERS AT BEDSIDE. PT URINAL EMPTIED. PT DENIES FURTHER NEEDS AT THIS TIME. CALL LIGHT IN REACH.
--- NOTE | 2018-08-25 02:21 | NUR ---
PT RESTING IN BED WITH EYES CLOSED. RESPIRATIONS EVEN AND UNLABORED. PT APPEARS TO BE SLEEPING. OFFICER AT BEDSIDE STATES THAT PT JUST FELL ASLEEP AOUT 15 MIN PRIOR. PT DOES NOT WAKE WHILE OVERSEAMER CLEARS IV PUMP. CALL LIGHT IN REACH. OFFICERS REMAIN AT BEDSIDE X2.
--- NOTE | 2018-08-25 05:42 | NUR ---
PT ASSESSMENT COMPLETE. PT STATES THAT PAIN IS UNCHANGED FROM PREVIOUS ASSESSMENT. PT DENIES NASUEA OR SOB. LUNG SOUNDS DIM. ABD OBESE, BT'S ACTIVE. PT DENIES BM THIS SHIFT. PT STANDS TO HAVE NEW GOWN PLACED, BACK TO BED WITH MINIMAL ASSISTANCE. CORRECTIONAL OFFICERS REMAIN AT BEDSIDE. CALL LIGHT IN REACH. PT DENIES FURTHER NEEDS AT THIS TIME.
--- NOTE | 2018-08-25 05:47 | NUR ---
PT AWAKE MOST OF SHIFT. REPORTS CHRONIC PAIN, DESCRIBES "MUSCULAR". LUNG SOUNDS DIMINISHED. PT DENIES SOB. ABD OBESE, NON DISTENDED PER PT. BT'S ACTIVE. NO BM THIS SHIFT. IND IN ROOM WITH GUARD ASSISTANCE. SHACKLES IN PLACE X4. D5LR @ 75. UO QS.
--- NOTE | 2018-08-25 06:38 | OR ---
[facility] [address], [place] [address] Signed DATE OF OPERATION: 08/24/2018 SURGEON: Donald Still MD PREOPERATIVE DIAGNOSES: 1. Melvi-Venegas tear. 2. Moderate-sized hiatal hernia. 3. Negative Helicobacter pylori. POSTOPERATIVE DIAGNOSES: 1. Proximal gastric ulcers x2. 2. Moderate distal gastritis. 3. Moderate-sized hiatal hernia. PROCEDURE PERFORMED: Esophagogastroduodenoscopy with biopsy of the antrum, injection of epinephrine, and placement of clip x1. ESTIMATED BLOOD LOSS: None. INDICATIONS: Baljinder is a 73-year-old gentleman who came to us 6 days ago with a significant GI bleed. He also has chronic anemia. His hemoglobin was as low as 5.9 and he had to be transfused. His platelet count was around 80,000. BUN is up a little at 25. INR was 1.4. He had no upper abdominal pain and no prior history of vomiting or retching or dry heaves. We had put him through his bowel prep and we did his upper and lower endoscopy 4 days ago. During the prep, he did have some coffee-ground emesis. We found what we thought was a broad-based Melvi-Venegas tear with some clot. There was no active bleeding. We did note that it was broader than we would normally see for a Melvi-Venegas tear. We also saw was moderate-sized hiatal hernia along with some diverticulosis and then just a small anal fissure that had a little fresh blood as well. We kept him in the hospital now on his Protonix twice a day and he looks and feels much better. His hemoglobin has slowly drifted down along with his platelet count. We left him on just some clear liquids. We eventually gave him 1 unit of platelets, but he had not eaten yesterday, so I could not take him back in the morning for his upper endoscopy. He again was hemodynamically stable, but again he continued to drift down, so we decided to take him this morning for repeat upper endoscopy. I had reviewed with Baljinder the nature of an upper endoscopy along with the risks including, but not limited to gas, bloating, crampy abdominal pain, bleeding, perforation requiring surgery, and Electronically Signed By: DONALD STILL MD 08/25/18 0638 PATIENT NAME: BALJINDER ASKEW OPERATIVE REPORT DATE OF : 49 REPORT #: [id number] PHYSICIAN: DONALD STILL MD PCP: LINUS YO MD REPORT IS CONFIDENTIAL AND NOT TO BE RELEASED WITHOUT AUTHORIZATION [facility] [address] [place] [id number] Signed missed diagnosis. We had also discussed the need for IV conscious sedation. Given his current situation, we asked an anesthesia provider to help us with increased airway monitoring and infusion with propofol. He did express his understanding and wished to proceed. DESCRIPTION OF PROCEDURE: Baljinder was taken into our endoscopy suite and placed in the supine semi-recumbent position. He was given IV sedation per our nurse ingredient handler with propofol. An adult gastroscope was introduced and advanced under direct visualization. His esophagus was completely clean. As we came into the hiatal hernia and into the stomach, we could once again see a clot without any active bleeding underneath. We passed the scope down the antrum and he had moderate inflammatory changes in the antrum. We went and took an additional biopsy from the antrum. We did not repeat the CLOtest today. The pyloric bulb and the duodenum were completely unremarkable. There was very minimal fresh blood in his stomach. We had retroflexed the scope and once again, we can see that he has a blood clot up along the proximal portion of his stomach near the hiatal hernia. It is circular, rather than linear. As we looked around the area further, he has a second ulcer exactly opposite the one with the clot. We had injected epinephrine circumferentially around the entire ulcer. It looked like he had just a little bit of oozing along the edge from the ulcer bed in the mucosa. We had placed an initial clip and what we thought was the center of the ulcer and the second clip went and it was so indurated at the base of the ulcer the clip slid over to the edge before caught on the mucosa. It took me a few minutes. We finally got the clot completely removed and the first clip came out with the clot under the camera, so we brought the camera and discarded that first clip. We went back and looked at the ulcer very carefully and now we could see the full extent of the ulcer bed. There was no visible vessel and there was no bleeding at this point. We spent quite a bit of time obviously with this and injected epinephrine and we felt very secure there was no additional bleeding. Consequently, we suctioned out the gas and withdrew the scope. Baljinder tolerated this procedure quite well. RECOMMENDATIONS: Baljinder will be returned to his room and maintained on a full liquid diet along with his proton pump inhibitor. We need to monitor him a day or two more and see how this goes. It should heal in due time. It will take about 12 weeks. Hopefully, we can avoid surgery for this gentleman as his ulcer is quite high and more or lesser would require a resection. Donald Still MD Electronically Signed By: DONALD STILL MD 08/25/18 0638 PATIENT NAME: BALJINDER ASKEW OPERATIVE REPORT DATE OF : 49 REPORT #: [id number] PHYSICIAN: DONALD STILL MD PCP: LINUS YO MD REPORT IS CONFIDENTIAL AND NOT TO BE RELEASED WITHOUT AUTHORIZATION [address] [address] Signed ALB/MODL /[id number] cc: MD Linus Cazares MD Copies: DONALD STILL MD, LELAND MD ~ Electronically Signed By: DONALD STILL MD 08/25/18 0638 PATIENT NAME: BALJINDER ASKEW OPERATIVE REPORT DATE OF : 49 REPORT #: [id number] PHYSICIAN: DONALD STILL MD PCP: LINUS YO MD REPORT IS CONFIDENTIAL AND NOT TO BE RELEASED WITHOUT AUTHORIZATION
--- NOTE | 2018-08-25 08:12 | NUR ---
REPORT RECIEVED FROM KATHIE GROSS. PT AWAKE WITH GUARDS STANDING AT BEDSIDE. PT DENIES CONCERNS. NO DARK STOOLS OVERNIGHT. IVF INFUSING WNL.
--- NOTE | 2018-08-25 10:08 | NUR ---
PATIENT IN BED WATCHING TV, GUARDS IN ROOM. CALL LIGHT IN REACH. NO FURTHER NEEDS AT THIS TIME.
--- NOTE | 2018-08-25 11:13 | NUR ---
PATIENT UP TO SHOWER AND BACK TO BED, SBA, GUARDS IN ROOM. PATIENT INDEPENDENT IN SHOWER. NEW GOWN PROVIDED. CALL LIGHT IN REACH. NO FURTHER NEEDS AT THIS TIME.
--- NOTE | 2018-08-25 12:30 | NUR ---
SPOKE TO DR STILL. HE ORDERED 2 UNITS PLATELETS AND CALCIUM GLUC. 9.3 MEQ AND REDRAW CBC AFTER PLT. PUT ORDERS IN. CALLED LAB. AWAITING VERIFICATION.
--- NOTE | 2018-08-25 13:42 | NUR ---
STARTED CALCIUM GLUC. IV FLUSHED WELL. PT RESTING WITH EYES CLOSED. GUARDS IN ROOM.
--- NOTE | 2018-08-25 14:16 | NUR ---
PT LAYING IN BED, WATCHING TV. [employer] GUARDS IN RM. PT STATED HE IS FEELING MUCH BETTER. THANKED ME FOR COMING IN, WILL FOLLOW NEEDED
--- NOTE | 2018-08-25 14:19 | NUR ---
PATIENT IN BED WATCHING TV, GUARDS IN ROOM. FRESH WATER GIVEN. CALL LIGHT IN REACH. NO FURTHER NEEDS AT THIS TIME.
--- NOTE | 2018-08-25 16:32 | NUR ---
PT AWAKE WATCHING TV. DENIES CONCERNS.
--- NOTE | 2018-08-25 17:41 | NUR ---
PATIENT IN BED WATCHING TV, 2 GUARDS IN ROOM. FRESH WATER GIVEN. CALL LIGHT IN REACH. NO FURTHER NEEDS AT THIS TIME.
--- NOTE | 2018-08-25 18:56 | NUR ---
CALLED PHIL VÁZQUEZ AT [facility] TO GIVE UPDATE OF POSSIBLE D/C TOMORROW PENDING LABS
--- NOTE | 2018-08-25 19:25 | NUR ---
BEDSIDE REPORT RECEIVED FROM OFFGOING RN. PT RESTING IN BED, PARTICIPATES IN REPORT. GUARDS PRESENT AT BEDSIDE X2. PT DENIES NEEDS AT THIS TIME. CALL LIGHT IN REACH.
--- NOTE | 2018-08-25 20:02 | NUR ---
PLT ADMINISTRATION. BAG CHECKED WITH 2 RN'S. PRE TRANSFUSION VITALS OBTAINED. VSS. PT RESTING IN BED AWAKE. NO QUESTIONS AT THIS TIME. LUNCHROOM FOOD SERVICE SUPERVISOR REMAINS IN ROOM.
--- NOTE | 2018-08-25 20:19 | NUR ---
PLT'S INFUSING X 15 MIN. VS RECHECKED. WNL. NO S/SX OF INFUSION REACTION NOTED. PT DENIES QUESTIONS OR CONCERNS AT THIS TIME. CALL LIGHT IN REACH. GUARDS AT BEDSIDE X 2.
--- NOTE | 2018-08-25 21:00 | NUR ---
CHECKED IN ON PT. PT MOSTLY SLEEPY, BUT DOES WAKE AND DENIES DISCOMFORT R/T TO RECEIVING PLTS. GUARDS AT BEDSIDE.
--- NOTE | 2018-08-25 21:15 | NUR ---
PT SCHEDULED MEDICATIONS ADMINISTERED. PT DENIES DIZINESS, LIGHTHEADEDNESS, ITCHING, OTHER S/SX AT THIS TIME. ICE WATER REFILLED PER PT REQUEST. DENIES FURTHER NEEDS AT THIS TIME. PLT'S CONTINUE TO INFUSE WNL. CALL LIGHT IN REACH. GUARDS AT BEDSIDE X 2.
--- NOTE | 2018-08-25 22:15 | NUR ---
2ND UNIT PLT'S INITIATED. PREVITAL SIGNS WNL. PLT'S DOUBLE CHECKED WITH 2ND RN. SENIOR COMPENSATION CONSULTANT REMAINS IN ROOM.
--- NOTE | 2018-08-25 23:41 | NUR ---
PT RESTING IN BED WITH EYES CLOSED, WAKES EASILY WHEN COPYRIGHT MANAGER ENTERS THE ROOM. DENIES S/SX OF DISTRESS. DENIES NEEDS AT THIS TIME. CALL LIGHT IN REACH. GUARDS REMAIN AT BEDSIDE.
--- NOTE | 2018-08-26 02:20 | NUR ---
PT ASSESSMENT COMPLETE. PT RATES PAIN 5-6/10, UNCHANGED FROM PREVIOUS. PT STATES THAT HEADACHE HE HAD EARLIER IS NOW RESOLVED. PT DENIES NASUEA OR SOB AT THIS TIME. LUNG SOUNDS DIM IN BILATERAL BASES. SMALL SCAB NOTED TO R WRIST. PT DECLINES NEEDS AT THIS TIME. GUARDS PRESENT X 2 AT BEDSIDE. CALL LIGHT WITHIN REACH.
--- NOTE | 2018-08-26 04:00 | NUR ---
PT UP TO THE BATHROOM WITH 1PA. PT REPORTS HAVING BM, "LESS TARRY THAN BEFORE". UNABLE TO STATE SIZE. PT BACK TO BED. ICE WATER PROVIDED. CALL LIGHT IN REACH. GUARDS AT BEDSIDE X 2.
--- NOTE | 2018-08-26 06:23 | NUR ---
PT AWAKE MOST OF SHIFT. RECEIVED PLT'S X 2 UNITS. CHRONIC PAIN, PT'S DESCRIBES JOINT AND MUSCLE PAIN. BM X 1 THIS SHIFT, DARK IN COLOR. UO QS RESTRAINTS X 4. GUARDS AT BEDSIDE. D5LR @ 75. 1 PA.
--- NOTE | 2018-08-26 06:54 | NUR ---
PT REPORTS HEADACHE 08/22. PRN TYLENOL ADMINISTERED. PT DENIES FURTHER NEEDS. CALL LIGHT WITHIN REACH, GUARDS AT BEDSIDE X 2.
--- NOTE | 2018-08-26 07:15 | NUR ---
Pt is sitting up at this time, a&ox3. Pt is on ra, resp even and non labored. Two correctional officers at bedside. Personal supplies and call light wihtin reach. No needs at this time.
--- NOTE | 2018-08-26 08:09 | NUR ---
PATIENT SITTING UP IN BED, 2 GUARDS IN ROOM. CALL LIGHT IN REACH. NO FURTHER NEEDS AT THIS TIME.
--- NOTE | 2018-08-26 09:21 | NUR ---
Pt up walking to unit with two correctional officers. Pt has no needs at this time and is tolerating walk well.
--- NOTE | 2018-08-26 10:47 | NUR ---
DR ROSS CAME OUT OF THE PATIENTS ROOM ASKING FOR A BOOK FOR HIM TO READ. FOUND HIM A COUPLE AND ALSO SOME OF THE [employer]. THE GUARD IN THE ROOM INSPECTED THEM FIRST BEFORE GIVING THEM TO THE PATIENT. THE PATIENT WAS EXTREMELY GRATEFUL.
--- NOTE | 2018-08-26 10:48 | NUR ---
PATIENT IN BED RESTING, 2 GUARDS IN ROOM. FRESH WATER GIVEN. CALL LIGHT IN REACH. NO FURTHER NEEDS AT THIS TIME.
--- NOTE | 2018-08-26 11:45 | NUR ---
FAXED UPDATED CHART NOTES TO GLORIA AT [facility] INCLUDING UPDATES FROM 08/24 TO 08/25/18. RECIEVED FAX CONFIRMATION.
--- NOTE | 2018-08-26 13:39 | NUR ---
PT AWAKE, ALERT AND ORIENTED. PT DENIES PAIN. SPINAL RESOLVING AT NOW AT L4. PT TOLERAING PO WELL, LUNCH ORDERED. PT ABLE TO VOID. PERSONAL SUPPLIES AND CALL LIGHT WITHIN REACH. BED ALARM INTACT.
--- NOTE | 2018-08-26 20:52 | NUR ---
ROUNDED CHARGE. PATIENT IS RESTING IN BED. PATIENT DENIES ANY COMMENTS, QUESTIONS OR CONCERNS. GUARDS REMAIN IN THE ROOM. NO NEEDS NOTED. CALL LIGHT IN REACH.
--- NOTE | 2018-08-26 21:27 | NUR ---
V/S AND I&O TAKEN AND RECORDED. ICE WATER REFILLED.
--- NOTE | 2018-08-26 23:30 | NUR ---
PATIENT RESTING WATCHING TV IN BED. 2 [employer] OFFICERS PRESENT IN THE ROOM.
--- NOTE | 2018-08-27 00:17 | NUR ---
[employer] OFFICERS JUST CHANGED SHIFT. PATIENT SAYS HE IS HAVING 7/10 PAIN FROM A HEADACHE AND WASS GIVEN 2 TYLENOL.
--- NOTE | 2018-08-27 02:00 | NUR ---
PATIENT AWAKE WATCHING TV FROM BED WITH 2 [employer] OFFICERS AT BEDSIDE. PATIENT HAD NO CAR NEEDS AT THIS TIME.
--- NOTE | 2018-08-27 04:05 | NUR ---
PATIENT CONTINUES TO REMAIN AWAKE AND IS IN BED STILL WATCHING TV WITH THE [employer] OFFICERS.
--- NOTE | 2018-08-27 05:40 | NUR ---
PATIENT ONLY SLEPT A LITTLE LAST NIGHT. HEADACHE RELIEVVED WITH PO TYLENOL OTHERWISE PATIENT HAS HAD NO PAIN. PATIENT UP IN THE BATHROOM AT THIS TIME AND HAS BEEN NPO SINCE 5AM THIS MORNING. PATIENT AND [employer] OFFERS ALL KNOW PATIENT IS NPO.
--- NOTE | 2018-08-27 07:33 | NUR ---
Pt awake, sitting up in bed. Pt is on ra, resp even and non labored. Pt has no needs. Call light within reach.
--- NOTE | 2018-08-27 07:50 | NUR ---
Pt npo at this time d/t DI study this am.
--- NOTE | 2018-08-27 09:58 | NUR ---
FAXED CHART NOTES FOR YEST AND TODAY THAT I HAVE TO GLORIA AT [facility]. RECIEVED FAX CONFIRMATION OF THIS.
--- NOTE | 2018-08-27 10:59 | NUR ---
Spoke with Dr. Morgan regarding pt's npo status post esophagram study. At this time pt may have sips of water with medication only, until further notice.
--- NOTE | 2018-08-27 13:48 | NUR ---
REPORT RECEIVED FROM CRYSTAL VÁZQUEZ. PT IN BED IN 4 POIN RESRAINTS. 2 GAURDS AT BEDSIDE. D5LR AT 75 INFUSING INTO LEFT ARM. ASSESSMENT OF IV REVIELED SWELLING OF LEFT EXTREMITY. PT DENEIS PAIN IN THE ARM. IV DC'D. PT SL TO SHOWER WITH GAURDS AT SIDE. CALL LIGHT IN REACH, PT IS NPO AT THIS TIME. MOUTH SWABS PROVIDED.
--- NOTE | 2018-08-27 14:22 | NUR ---
PT BACK TO BED. FLUIDS TO RIGHT IV SITE. [address] 2 GAURDS AT BEDSIDE. CALL LIGHT IN REACH
--- NOTE | 2018-08-27 19:45 | NUR ---
ROUNDED CHARGE. PATIENT IS AMBULATING IN HALLWAY WITH X2 GUARDS. PATIENT DENIES ANY NEEDS.
--- NOTE | 2018-08-27 22:00 | NUR ---
PATIENT IS RESTING QUIETLY EYES CLOSED 2 [employer] OFFICERS ARE AT THE BEDSIDE. EVENING ASSESSMENT AND MEDS ARE ALREADY DONE PATIENT DID GET SOME TYLENOL FOR A HEAD ACHE.
--- NOTE | 2018-08-28 00:15 | NUR ---
PATIENT RESTING QUIETLY IN BED WATCHING TV WITH [employer] OFFICERS.
--- NOTE | 2018-08-28 02:30 | NUR ---
PATIENT STILL WATCHING TV WITH [employer] OFFICERS, CALLED TO HAVE HIS URINAL EMPTIED.
--- NOTE | 2018-08-28 03:17 | NUR ---
PATIENT STILL HAS ONLY CAT NAPPED THROUGH THE NIGHT. STILL WATCHING TV WITH OFFICERS.
--- NOTE | 2018-08-28 05:18 | NUR ---
PATIENT HAS CAT NAPPED IN HIS BED TROUGH THE NIGHT, VOIDING IN THE URINAL AND, 2 [employer] OFFICERS REMAIN at the bedside. PATIENT'S ONLY COMPLAINT WAS A HEADACHE HE HAD AT EVENING MED PASS WHICH HE GOT TYLENOL FOR AND RESOLVED HIS HEADACHE. PATIENT REMAINS IN [facility] [place] [place], CUFFS AND SHACKLES.
--- NOTE | 2018-08-28 07:05 | NUR ---
PT RESTING SUPINE IN BED, EYES CLOSED AND RESPIRATIONS EVEN AND UNLABORED. TWO OFFICERS AT BEDSIDE. CALL LIGHT AND H20 IN REACH. REPORT RECEIVED FROM KATHIE BLANCO.
--- NOTE | 2018-08-28 07:15 | NUR ---
REPIORT RECEIVED FROM KATHIE BLANCO. PT RESTING IN BED WATCHING TV. PT ALERT AND ORIENTED AND REMAINS IN [facility] REST[facility] WITH TWO [employer] OFFICERS AT BEDSIDE. PT DENIES NEEDS/CONCERNS H2O AND CALL LIGHT IN REACH. PT APPEARS TO BE IN NO ACUTE DISTRESS, RESPIRATIONS EVEN AND UNLABORED AT 16.
--- NOTE | 2018-08-28 08:12 | NUR ---
PATIENT SITTING UP IN BED, 2 GUARDS IN ROOM. CALL LIGHT IN REACH. NO FURTHER NEEDS AT THIS TIME.
--- NOTE | 2018-08-28 08:23 | NUR ---
PT RESTING SUPINE IN BED WATCHING TV, CALL IGHT AND H20 IN REACH. AM MEDS ADMINSITERED AND ASSESSMENT COMPLETED. FRESH ICE WATER PROVIDED. PT DENIES FUHHTER NEEDS/CONCERNS. TWO OFFICERS REMAIN AT BEDSIDE MONITORING PATIENT.
--- NOTE | 2018-08-28 08:27 | NUR ---
pt sitting up in bed watching tv, pt appears to be in no acute distress. assessment completed. two officers remain at bedside with patient. call light and h20 in reach.no needs/concerns voiced.
--- NOTE | 2018-08-28 09:36 | NUR ---
PATIENT IN BED WATCHING TV. FRESH WATER GIVEN. 2 GURADS IN ROOM. CALL LIGHT IN REACH. NO FURTHER NEEDS AT THIS TIME.
--- NOTE | 2018-08-28 11:00 | NUR ---
PT UP AMBULATING IN HALLS WITH TWO [employer] OFFICERS AT THIS TIME, PT REMAINS IN [employer] [place] RESTRAINTS AND AMBULATES WITH SLOW BUT STEADY GAIT. PT APPEARS TO BE IN NO DISTRESS.
--- NOTE | 2018-08-28 12:34 | NUR ---
Pt resting supine in bed watching tv. Midday med administered -see emar. Pt provided with clear ensure per his request. Call light and h2o in reach. Pt denies further needs/concerns.
--- NOTE | 2018-08-28 14:00 | NUR ---
THIS RN ASSUMING CARE OF PT. REPORT RECEIVED FROM KATHIE DUBON. PT READY FOR SHOWER. MEDICATION GIVEN. PIV IN RIGHT WRIST SALINE LOCKED. PIV IN RIGHT FORARM LEAKING AND HAS BEEN IN FOR 4 DAYS, THIS PIV DC'D PER PROTOCOL. GAUZE AND COBAN APPLIED. PT UP TO SHOWER WITH OFFICERS AND CHLORINATOR OPERATOR. NO ADDITIONAL REQUESTS OR COMPLAINTS AT THIS TIME.
--- NOTE | 2018-08-28 14:30 | NUR ---
PATIENT IN BED WATCHING TV. 2 GUARDS IN ROOM. FRESH WATER GIVEN. CALL LIGHT IN REACH. NO FURTHER NEEDS AT THIS TIME.
--- NOTE | 2018-08-28 15:36 | NUR ---
PT FINISHED WITH SHOWER. THIS RN TO ROOM. PIV ASSESSED, WNL, BLOOD RETURN NOTED. IV FLUIDS RESTARTED. PT RESTING IN BED. DENIES PAIN AND [place]. OFFICERS AT BEDSIDE. CALL LIGHT WITHIN REACH.
--- NOTE | 2018-08-28 16:10 | NUR ---
KATHIE DUBON RETURNING TO ASSUME CARE OF PT. REPORT GIVEN. QUESTIONS ASKED AND ANSWERED.
--- NOTE | 2018-08-28 19:36 | NUR ---
Tussin Dm 5cc given per c/o cough. coop with assessment. 2 [employer] guards in room
--- NOTE | 2018-08-28 20:45 | NUR ---
PT AMBULATED AROUND THE LOOP TWICE IN THE [place] WITH CORRECTIONAL OFFICERS.
--- NOTE | 2018-08-29 00:32 | NUR ---
C/O 5/10 H/A, MEDICATED WITH TYLENOL 650MG PO. CALL LIGHT AT BEDSIDE, IVF INFUSING W/O PROBLEMS. NO N/V. WEARING 4 POINT SHACKLES, 2 [employer] GUARDS IN ROOM
--- NOTE | 2018-08-29 02:36 | NUR ---
Medicated earlier with Tylenol per c/o h/a, fair relief stated. Cold pack to back of neck given. IVF infusing w/o problems. [address] 2 [employer] officers in room.
--- NOTE | 2018-08-29 06:30 | NUR ---
scheduled thyroid medication given. pt denies additional needs, call light in reach.
--- NOTE | 2018-08-29 06:41 | NUR ---
VITALS AND I&OS DONE AND CHARTED. GARBAGES EMPTIED. BEDSIDE TABLE AND CALL LIGHT IN REACH. PT NEEDS NOTHING AT THIS TIME.
--- NOTE | 2018-08-29 07:12 | NUR ---
BEDSIDE REPORT RECEIVED FROM KATHIE LEÓN. PT RESTING IN [place] POSITION IN BED WATCHING TV. PT APPEARS TO BE IN NO ACUTE DISTRESS. NO NEEDS/CONCERNS VOICED. CALL LIGHT AND H2O IN REACH. PT REMAINS IN RESTRAINTS PER [employer] WITH 2 OFFICERS AT BEDSIDE.
--- NOTE | 2018-08-29 08:23 | NUR ---
PATIENT SITTING UP IN BED. TWO GUARDS IN ROOM. CALL LIGHT WITHIN REACH. NO OTHER NEEDS AT THIS TIME
--- NOTE | 2018-08-29 08:57 | NUR ---
PT SITTING UP IN BED EATING CLEAR LIQUID BREAKFAST. AM ASSESSMENT COMPLETED, AM MEDS ADMINISTERED INCLUDING PRN ROBITUSSIN PER PT C/O DRY COUGH. CALL LIGHT AND H2O IN REACH. PT APPEARS TO BE IN NO ACUTE DISTRESS. PT REMAINS IN [employer] RESTRAINTS WITH TWO OFFICERS AT BEDSIDE. PT DENIES FURTHER NEEDS/CONCERNS AT THIS TIME.
--- NOTE | 2018-08-29 09:22 | NUR ---
PATIENT SITTING UP IN BED. TWO GUARDS IN ROOM. VITAL SIGNS AND I&O DONE. CALL LIGHT WITHIN REACH. NO OTHER NEEDS AT THIS TIME
--- NOTE | 2018-08-29 11:19 | NUR ---
PT SITTING UP IN BED WATCHING TV. PT A/O X4, RR 18 ON RA. NO REPORTED SOB, NAUSEA, PAIN OR ANY OTHER SYMPTOMS VERBALIZED AND PT APPEARS TO BE IN NO ACUTE DISTRESS. PT REMAINS IN [employer] RESTRAINTS WITH TWO OFFICERS AT BEDSIDE. CALL LIGHT AND H20 IN REACH. FRESH ICE WATER PROVIDED. CALL LIGHT AND H20 IN REACH. PT DENIES FURHTER NEEDS/CONCERNS AT THSI TIME.
--- NOTE | 2018-08-29 11:31 | NUR ---
CLINICAL NOTES FOR 08/27-08/28-08/29 FAXED TO , VANDA JIMENEZ [phone]. STATED SHE HAD SPOKE TO SHAUNA YESTERDAY AND HAD NOT RECIEVED NOTES YET.
--- NOTE | 2018-08-29 12:44 | NUR ---
IV PUMP BEEPING, PT RESTING IN SEMIFOWLER SPOSITION IN BED, PT DENIES NEEDS/CONCERNS. CALL LIGHT AND H20 IN REACH. OFFICERS REMAIN AT BEDSIDE.
--- NOTE | 2018-08-29 13:04 | NUR ---
PATIENT SITTING UP IN BED. TWO GUARDS IN ROOM. VITAL SIGNS AND I&O DONE. CALL LIGHT WITHIN REACH. NO OTHER NEEDS AT THIS TIME
[2018-08-29] MEDS ORDERED: PANTOPRAZOLE SO40 MG PO (14:13)
[2018-08-29] MEDS ORDERED: SODIUM CHLORIDE1 GM PO (14:23)
== END 2018-08-29 15:18 | disposition home or self-care (01) | DRG 378 ==
LOC: ED 16:13 → CCU 17:39 → MS 08-21 13:00
PROVIDERS: Colon & Rectal Surgery; ADMIT Internal Medicine
PROC: 30233R1 Transfusion of Nonautologous Platelets into Peripheral Vein, Percutaneous Approach (ICD-10-PCS; 2018-08-19)
PROC: 30233N1 Transfusion of Nonautologous Red Blood Cells into Peripheral Vein, Percutaneous Approach (ICD-10-PCS; 2018-08-19)
PROC: 0DB78ZX Excision of Stomach, Pylorus, Via Natural or Artificial Opening Endoscopic, Diagnostic (ICD-10-PCS; 2018-08-20)
PROC: 0DJD8ZZ Inspection of Lower Intestinal Tract, Via Natural or Artificial Opening Endoscopic (ICD-10-PCS; 2018-08-20)
PROC: 3E0G8GC Introduction of Other Therapeutic Substance into Upper GI, Via Natural or Artificial Opening Endoscopic (ICD-10-PCS; 2018-08-24)
PROC: 0DB78ZX Excision of Stomach, Pylorus, Via Natural or Artificial Opening Endoscopic, Diagnostic (ICD-10-PCS; 2018-08-24)
PROC: 0W3P8ZZ Control Bleeding in Gastrointestinal Tract, Via Natural or Artificial Opening Endoscopic (ICD-10-PCS; principal; 2018-08-24 08:41)
DX: K25.4 Chronic or unspecified gastric ulcer with hemorrhage (principal); D62 Acute posthemorrhagic anemia; E22.2 Syndrome of inappropriate secretion of antidiuretic hormone; K60.2 Anal fissure, unspecified; I10 Essential (primary) hypertension; K21.9 Gastro-esophageal reflux disease without esophagitis; E78.5 Hyperlipidemia, unspecified; E03.9 Hypothyroidism, unspecified; D69.6 Thrombocytopenia, unspecified; K44.9 Diaphragmatic hernia without obstruction or gangrene; K57.30 Diverticulosis of large intestine without perforation or abscess without bleeding; E83.51 Hypocalcemia; E83.42 Hypomagnesemia; M47.816 Spondylosis without myelopathy or radiculopathy, lumbar region; M19.90 Unspecified osteoarthritis, unspecified site; T50.2X5A Adverse effect of carbonic-anhydrase inhibitors, benzothiadiazides and other diuretics, initial encounter; K29.70 Gastritis, unspecified, without bleeding; Z87.891 Personal history of nicotine dependence; Z85.46 Personal history of malignant neoplasm of prostate; Z79.1 Long term (current) use of non-steroidal anti-inflammatories (NSAID); Z79.899 Other long term (current) drug therapy
CPT/HCPCS: 36415; 36430; 74230; 74246; 80048; 80076; 82330; 82977; 83615; 83735; 83930; 83935; 84100; 84550; 85025; 85610; 85730; 86677; 86850; 86900; 86901; 86920; 93005; 93010; 96374; 97162; 99291; C9113; J0610; J1885; J2405; J2704; J3475; J7060; J7120; P9016; P9035

== ENCOUNTER 2018-09-16 09:10 | Emergency (ER) | payer OTHER ==
[~2018-09-16] VITALS: Ht 175.3 cm; Wt 83.6 kg
[~2018-09-16 09:10] MED LIST changes: +FERROUS SULFAT324 MG PO; +FLOMAX0.4 MG PO; +LIPITOR10 MG PO; +PANTOPRAZOLE SO40 MG PO; +SODIUM CHLORIDE1 GM PO; +ZYRTEC10 M3 PO
--- OUTSIDE RECORDS SUMMARY | 2018-09-16 09:12 | XMS ---
PreManage Notification: BALJINDER ASKEW [employer]el[employer] Sales Representative Events No recent Security Events currently on file CRITERIA MET - [facility] - 2 Visits in 30 Days CARE PROVIDERS There are no care providers on record at this time. Velia has no Care Guidelines for this patient. Jaime VISIT COUNT (12 MO.) [address] [facility] TOTAL 2 NOTE: Visits indicate total known visits. ED/C VISIT TRACKING (12 MO.) 09/16/2018 09:[address] [facility] TYPE: Emergency COMPLAINT: - SOB 08/19/2018 16:13 [facility] TYPE: Emergency COMPLAINT: - POSS HYPOTENSION INPATIENT VISIT TRACKING (12 MO.) 08/19/2018 17:39 [facility] TYPE: Medical Surgical COMPLAINT: - GI BLEED DIAGNOSES: - Acute posthemorrhagic anemia - Spondylosis without myelopathy or radiculopathy, lumbar region - Adverse effect of carbonic-anhydrase inhibitors, benzothiadiazides and other diuretics, initial encounter - Hemorrhage of anus and rectum - Anal fissure, unspecified - Gastritis, unspecified, without bleeding - long term care social worker (current) use of non-steroidal anti-inflammatories (NSAID) - Syndrome of inappropriate secretion of antidiuretic hormone - Other [facility] (current) drug therapy - Diaphragmatic hernia without obstruction or gangrene - Spondylosis without myelopathy or radiculopathy, lumbar region - retirement (current) use of non-steroidal anti-inflammatories (NSAID) - Personal history of malignant neoplasm of prostate - Personal history of nicotine dependence - Thrombocytopenia, unspecified - Other exterminator termite (current) drug therapy - Hypothyroidism, unspecified - Thrombocytopenia, unspecified - Hypothyroidism, unspecified - Chronic or unspecified gastric ulcer with hemorrhage - Unspecified osteoarthritis, unspecified site - Essential (primary) hypertension - Unspecified osteoarthritis, unspecified site - Hyperlipidemia, unspecified - Diverticulosis of large intestine without perforation or abscess without bleeding - Acute posthemorrhagic anemia - Gastro-esophageal reflux disease without esophagitis - Adverse effect of carbonic-anhydrase inhibitors, benzothiadiazides and other diuretics, initial encounter - Anal fissure, unspecified - Gastritis, unspecified, without bleeding - Chronic or unspecified gastric ulcer with hemorrhage - Hyperlipidemia, unspecified - Personal history of malignant neoplasm of prostate - Essential (primary) hypertension - Diverticulosis of large intestine without perforation or abscess without bleeding - Diaphragmatic hernia without obstruction or gangrene - Personal history of nicotine dependence - Hypocalcemia - Hypomagnesemia - Gastro-esophageal reflux disease without esophagitis - Syndrome of inappropriate secretion of antidiuretic hormone [email or web address]
[2018-09-16] MEDS ORDERED: CYMBALTA30 MG PO (09:30)
[2018-09-16] MEDS ORDERED: ELIGARD SUB-Q (09:30)
== END 2018-09-16 16:55 | disposition short-term general hospital (02) ==
LOC: ED 09:10
DX: K92.2 Gastrointestinal hemorrhage, unspecified (principal); D64.9 Anemia, unspecified; D69.6 Thrombocytopenia, unspecified; K21.9 Gastro-esophageal reflux disease without esophagitis; I10 Essential (primary) hypertension; Z85.46 Personal history of malignant neoplasm of prostate; Z87.891 Personal history of nicotine dependence; Z79.899 Other long term (current) drug therapy
CPT/HCPCS: 36430; 71046; 80053; 83880; 85025; 86850; 86900; 86901; 86920; 99285-25